=== PATIENT | female | born 1955 | race Caucasian/White ===

== ENCOUNTER → 2016-10-02 | Outpatient (CLI) | payer BC ==
[~2016-10-02] MED LIST: ESTR1.25 PO; GLAT40SY SQ; HYDR-3719 PO
--- NOTE | 2016-10-03 10:44 | Diagnostic Imaging Report ---
INDICATION: Screening mammogram COMPARISON: 06/02/2013 FAMILY HISTORY: Positive in grandmother. Bilateral digital mammography is performed with computer assisted detection (CAD) software utilization. There are no reported clinical signs and/or symptoms of breast cancer. The breast tissue pattern is composed mostly of radiographically dense breast tissue. This does limit sensitivity. Right breast: No dominant mass, suspicious microcalcification, or other significant abnormality is identified. Left breast: MLO view inferiorly, CC views centrally, posterior depth shows an area of microcalcification which should be assessed with additional magnification views. There is also a questionable nodule visible subareolar on the CC view. IMPRESSION: 1. Additional mammographic views of the left breast recommended. ACR BI-RADS Category 0 : Needs additional imaging Result letter will be mailed to the patient. Note: At least 10% of breast cancer is not imaged by mammography. Dictated by: Dictated on workstation # [id number]
== END ==
LOC: RAD 11:23
PROVIDERS: ATTEND Family Medicine
DX: Z12.31 Encounter for screening mammogram for malignant neoplasm of breast (principal); R92.8 Other abnormal and inconclusive findings on diagnostic imaging of breast

== ENCOUNTER 2016-10-09 13:45 | Outpatient (RCR) | payer BC, OTHER ==
--- NOTE | 2016-10-01 12:49 | PT/OT/ST INITIAL EVALUATION ---
Department of Health and Human Services Form Approved Health Care Financing Administration OMB No. [id number] PLAN OF CARE/ASSESSMENT FOR OUTPATIENT REHABILITATION (Complete for Initial Claims Only) 1. PATIENT'S NAME Milo Miner 2. ACC # [id number] 3. HICN NA 4. PROVIDER NO. NA 5. TYPE: PT 6. PRIOR HOSPITALIZATION NA 7. PRIMARY DX Lumbar spinal stenosis, spondylolysis and spondylolisthesis. 8. SECONDARY DX NA 9. ONSET DATE Worsening since December 2015 10. REFERRAL DATE NA 11. SOC. DATE 09/29/2016 12. TIME OF EVAL 3:01 p.m. 12. REFERRING PHYSICIAN Dr. Gareth Garner 13. CHARGES/UNITS 14. G CODES NA 15. PRIOR LEVEL OF FUNCTION; PERTINENT HISTORY (Prior therapy results, reason for referral.) S: Prior to therapy the patient did consent to today's evaluation and treatment. The patient is a 61-year-old female referred to physical therapy by Dr. Garner to address lumbar spinal stenosis, spondylolysis, and spondylolisthesis. Personal health rating: The patient rates her overall and general health as good. Description/mechanism of injury: The patient states, for unknown reasons, in December 2015, she got out of bed and had severe pain in her back. At this time, she additionally could not move her left leg or walk secondary to significant pain. The patient then underwent a series of epidurals to the lumbar spine and sacroiliac joint with no relief of symptoms. The patient has been to see 2 specialists for this condition. A second opinion from Dr. Garner determined that PT was indicated. If PT offers no relief, further diagnostic studies and other possible intervention will be pursued per patient report. The patient does state, at this time, she continues to have radicular symptoms down the left lower extremity that wraps around from her back down her toes. The patient states this is painful at times, but typically it is numbness and tingling present at this area. The patient additionally states she has MS with left-sided involvement as well. 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 Current level of function: Currently the patient is unable to sleep in a bed, having to sleep in a recliner to get comfortable. She is having significant difficulty with transitions, which significantly increases her pain. The patient is unable to work at this time. The patient additionally is not able to perform tasks such as tying her shoes or bending forward. She is unable to perform household tasks. The patient does state that she is trying for disability at this time due to this debilitating pain. Therapy History: No physical therapy services have been tried for this condition in the past. Obstacles to delivery of care: Not observed. Pain level: Maximal pain level is 9/10. The patient describes the pain as numbness and tingling in her left lower extremity and intense catching pain and stiffness in her low back. Aggravating factors: Include any prolonged positions, as well as what is previously mentioned. Relieving factors: Include medication, heat, as well as being on her hands and knees. In addition to when she is sitting, having her left leg up with her heel at her bottom helps this condition. Diagnostic testing: Include an MRI, which showed degenerative disk disease, spondylolysis and spondylolisthesis, as well as spinal stenosis per patient report. Past medical history: Includes MS, osteoarthritis, and previous cervical spine fusion due to degeneration. Current medications: A list of medications has been provided by the patient and is included in the chart. Patient's Goal: The patient's goal for physical therapy is to get pain relief and stronger to perform. 16. INITIAL ASSESSMENT/SAFETY PRECAUTIONS/MEDICAL COMPLICATIONS (Level of function at start of care. Be specific, use objective measures, list problems.) O: APPEARANCE, OBSERVATION AND GAIT: The patient presents as a middle aged female with a significantly forward flexed posture. The patient does have a significant antalgic gait pattern as well with decreased left stance time and decreased step length. The patient is significant guarded with all transitions including sit to stand, stand to sit, and sit to and from supine. PALPATION: With palpation the patient has significant increased tone and tightness throughout the thoracic spine and lumbar spine paraspinals with visible hypertrophy due to a long history of guarding. Deep palpation was not possible due to withdrawl from palpation. SPECIAL TESTS: Include an absent left Achilles reflex, patellar reflexes bilaterally and right Achilles is 3+/4 or hyperreflexive. The patient additionally has a positive left slump test. Minimal tolerance to position changes restricted special testing. RANGE OF MOTION/FLEXIBILITY: Throughout the hamstrings as measured at the popliteal angle on the right is 174 degrees, on the left 139 degrees with significant reproduction of neural tension symptoms. STRENGTH: Throughout the right lower extremity is 4/5 throughout and throughout the left lower extremity knee flexion 2+/5, knee extension 3/5. All other motions throughout the left lower extremity is grossly 3/5 throughout. TODAY'S TREATMENT: Following the initial evaluation therapeutic exercise was performed and issued as a home exercise program. An ultrasound treatment was then performed throughout the lumbar spine paraspinals. An electrical stimulation treatment with a moist heat pack was then performed. The patient did have a decrease in pain following today's treatment and improved mobility. 17. 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 PROGNOSIS: This patient does have a good prognosis with regular therapy attendance and compliance with home exercise program. This patient is expected to benefit from physical therapy services in order to have decreased pain, in no acute distress flexibility, increased strength to return to household activities. OUTCOME ASSESSMENT: The Modified Oswestry low back pain disability questionnaire which scored 62% disability. INFORMED CONSENT: The diagnosis, prognosis, treatment plan, risks and expected outcomes were discussed with the patient and the patient did agree to today's established plan of care. SHORT TERM GOALS: 1. The patient to be independent and compliant with home exercise program in 1 week. 2. The patient with a 50% decrease in maximum pain level in 3 weeks to allow return to sleeping in bed. 3. The patient with a negative left slump test to allow return to tying her shoes in 5 weeks. 4. The patient with left lower extremity strength at least 4/5 throughout in 6 weeks to allow stair ambulation. 5. 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 P: Plan to treat the patient 2 times per week for 8 weeks in order to address lumbar spinal stenosis, spondylolysis, and spondylolisthesis. Therapeutic treatments to include modalities to decrease pain, inflammation and spasming. Manual therapy techniques as indicated. Therapeutic exercise targeting flexibility and core stabilization activities, balance and proprioceptive training, and patient education and home exercise program to be advanced as warranted. 18. FREQUENCY 2 times per week 19. DURATION 8 weeks 20. FUNCTIONAL LEVEL (End of claim period) 21. PHYSICIAN SIGNATURE ? ON FILE OR ENTER HERE: 22. DATE: I certify the need for these services furnished under this plan of care and if for partial hospitalization. 23. CERTIFICATION FROM THROUGH FORM FA-[id number]
== END 2016-10-12 12:00 | disposition home or self-care (01) ==
LOC: PT 13:45
PROVIDERS: ATTEND Neurological Surgery
DX: M48.06 Spinal stenosis, lumbar region (principal); M43.06 Spondylolysis, lumbar region; M43.16 Spondylolisthesis, lumbar region
CPT/HCPCS: 97035; 97110; 97140; 97162; G0283; 97014

== ENCOUNTER → 2016-10-15 | Outpatient (CLI) | payer BC ==
--- NOTE | 2016-10-15 20:50 | Diagnostic Imaging Report ---
EXAM: DIGITAL MAMMO LT DIAG W/CAD The current study was also evaluated with a Computer Aided Detection (CAD) system. INDICATION: Callback for calcifications in the left breast and a possible left retroareolar asymmetry. COMPARISON: Multiple mammograms 06/02/2013 through 10/02/2016. DENSITY: Heterogeneously dense, which may obscure small masses. FINDINGS: Additional imaging, including spot magnification and compression, demonstrates the calcifications in the lower left breast, along the nipple line on the CC views, middle depth, layer on the ML view consistent with benign milk of calcium. There is a persistent well-circumscribed retroareolar focal asymmetry on the additional images. IMPRESSION: 1. Persistent well-circumscribed retroareolar focal asymmetry in the left breast. 2. Benign milk of calcium calcifications in the lower left breast. RECOMMENDATION: Targeted ultrasound of the retroareolar left breast which will also be performed today. ACR BI-RADS Category 0: Incomplete. (Needs additional imaging evaluation). Result letter will be mailed to the patient. Note: At least 10% of breast cancer is not imaged by mammography. Dictated by: Dictated on workstation # [id number]
--- NOTE | 2016-10-15 21:08 | Diagnostic Imaging Report ---
EXAM: US BREAST LIMITED, LEFT The current study was also evaluated with a Computer Aided Detection (CAD) system. INDICATION: Retroareolar focal asymmetry in the left breast. COMPARISON: Multiple mammograms 06/02/2013 through 10/02/2016. Diagnostic mammogram performed earlier today. FINDINGS: Targeted ultrasound of the retroareolar left breast demonstrates a small collection of simple appearing cysts which demonstrate no flow by color Doppler. This measures 5 mm in diameter and is located at 8 o'clock, approximately 3 cm from the nipple. No other cyst or mass is identified on ultrasound. IMPRESSION: Small cluster of probably benign cysts in the retroareolar left breast. RECOMMENDATION: Followup diagnostic mammography including ultrasound in 6 months. BI-RADS category 3: Probably benign. Dictated by: Dictated on workstation # [id number]
== END ==
LOC: RAD 13:57
PROVIDERS: ATTEND Family Medicine
DX: R92.8 Other abnormal and inconclusive findings on diagnostic imaging of breast (principal)
CPT/HCPCS: 76642; G0206